=== PATIENT | female | born 1970 | race Hispanic/Latino ===

== ENCOUNTER → 2018-06-08 | Outpatient (CLI) | payer OTHER ==
--- NOTE | 2018-06-20 08:47 | Diagnostic Imaging Report ---
#[id number] - MGSCRBIL #BILATERAL DIGITAL SCREENING MAMMOGRAM WITH CAD: 06/08/2018 CLINICAL: Routine screening. No prior exams were available for comparison. Current study contains 4 films. There are scattered fibroglandular elements in both breasts. Current study was also evaluated with a Computer Aided Detection (CAD) system. There are benign intramammary nodes in the left breast. No significant masses, calcifications, or other findings are seen in either breast. IMPRESSION: BENIGN There is no mammographic evidence of malignancy. A 1 year screening mammogram is recommended. The patient will be notified by letter of the results. Vel roblero/zohaib:06/19/2018 15:17:29 Service Desk Specialist: Tiki HURLEY)(M), [facility] letter sent: Normal Exam Mammogram BI-RADS: 2 Benign
== END ==
LOC: MAMMO 10:34
PROVIDERS: ATTEND Obstetrics & Gynecology
DX: Z12.31 Encounter for screening mammogram for malignant neoplasm of breast (principal)
CPT/HCPCS: 77067